=== PATIENT | male | born 1950 | race Caucasian/White ===

== ENCOUNTER 2018-05-15 20:29 | Inpatient (IN) | payer OTHER ==
[~2018-05-15] VITALS: Ht 182.9 cm; Wt 101.2 kg
[2018-05-15 20:58] LABS: BASOPHIL % 0.5 % (0-2); PLATELET COUNT 197 x10^3mcL (130-400)
[2018-05-15 20:59] LABS: RED CELL DISTRIBUTION WIDTH 16.2 % (11.5-14.5)
[2018-05-15 21:21] LABS: CALCIUM 8.8 mg/dL (8.5-10.1); CARBON DIOXIDE 29.6 mmol/L (21-32); CHLORIDE SERUM 104 mmol/L (98-107); GFR1 > 60 mL/min; GLUCOSE SERUM 303 mg/dL (74-106); POTASSIUM SERUM 4.5 mmol/L (3.5-5.1); SODIUM SERUM 139 mmol/L (136-145)
[2018-05-15 21:26] LABS: ALBUMIN 3.1 g/dL (3.4-5.0); ALKALINE PHOSPHATASE 55 U/L (46-116); ALT/SGPT 20 U/L (16-63); AST/SGOT 15 U/L (15-37); BILIRUBIN TOTAL 0.72 mg/dL (0.20-1.00); LIPASE 96 IU/L (73-393)
[2018-05-15 22:05] LABS: MAGNESIUM 1.4 mg/dL (1.8-2.4); PHOSPHOROUS 3.6 mg/dL (2.5-4.9)
[2018-05-15 22:06] LABS: CHOLESTEROL/HDL RATIO 3.3
[2018-05-15 23:12] VITALS: BP 138/66
[2018-05-16 00:24] LABS: microscopic required? NO
[2018-05-16 00:40] LABS: urine erythrocyte NEGATIVE (NEGATIVE)
[2018-05-16 01:02] LABS: BASOPHIL % 0.3 % (0-2); PLATELET COUNT 177 x10^3mcL (130-400); RED CELL DISTRIBUTION WIDTH 15.5 % (11.5-14.5)
[2018-05-16 01:06] LABS: AMPHETAMINE QUAL UR NONE DETECTED (See below)
[2018-05-16 02:25] VITALS: BP 125/68
[2018-05-16 06:07] VITALS: BP 120/67
[2018-05-16 06:36] LABS: CALCIUM 8.4 mg/dL (8.5-10.1); CHLORIDE SERUM 108 mmol/L (98-107); GFR1 > 60 mL/min; GLUCOSE SERUM 240 mg/dL (74-106); MAGNESIUM 1.6 mg/dL (1.8-2.4); PHOSPHOROUS 2.9 mg/dL (2.5-4.9); POTASSIUM SERUM 4.4 mmol/L (3.5-5.1); SODIUM SERUM 144 mmol/L (136-145)
[2018-05-16 07:00] LABS: BASOPHIL % 0.2 % (0-2); PLATELET COUNT 170 x10^3mcL (130-400)
[2018-05-16 07:03] LABS: RED CELL DISTRIBUTION WIDTH 15.9 % (11.5-14.5)
[2018-05-16 09:56] VITALS: BP 140/78
[2018-05-16 12:55] VITALS: BP 133/72
[2018-05-16 14:35] LABS: BASOPHIL % 0.8 % (0-2); PLATELET COUNT 205 x10^3mcL (130-400)
[2018-05-16 14:43] LABS: RED CELL DISTRIBUTION WIDTH 16.6 % (11.5-14.5)
[2018-05-16 18:39] VITALS: BP 159/78
[2018-05-16 20:36] VITALS: BP 151/77
[2018-05-17 05:16] VITALS: BP 137/77
[2018-05-17 06:26] LABS: BASOPHIL % 0.2 % (0-2); PLATELET COUNT 143 x10^3mcL (130-400)
[2018-05-17 06:28] LABS: RED CELL DISTRIBUTION WIDTH 16.8 % (11.5-14.5)
[2018-05-17 06:35] LABS: CALCIUM 8.4 mg/dL (8.5-10.1); CARBON DIOXIDE 32.2 mmol/L (21-32); CHLORIDE SERUM 107 mmol/L (98-107); CREATININE SERUM 0.8 mg/dL (0.7-1.3); GFR1 > 60 mL/min; GLUCOSE SERUM 211 mg/dL (74-106); POTASSIUM SERUM 3.8 mmol/L (3.5-5.1); SODIUM SERUM 144 mmol/L (136-145)
[2018-05-17 09:19] VITALS: BP 147/72
[2018-05-17 12:30] VITALS: BP 114/48
[2018-05-17 17:48] VITALS: BP 133/58
[2018-05-17 20:20] VITALS: BP 127/71
[2018-05-18 05:22] VITALS: BP 134/63
[2018-05-18 06:33] LABS: CALCIUM 8.5 mg/dL (8.5-10.1); CARBON DIOXIDE 30.8 mmol/L (21-32); CHLORIDE SERUM 107 mmol/L (98-107); CREATININE SERUM 0.9 mg/dL (0.7-1.3); GFR1 > 60 mL/min; GLUCOSE SERUM 168 mg/dL (74-106); POTASSIUM SERUM 3.6 mmol/L (3.5-5.1); SODIUM SERUM 143 mmol/L (136-145)
[2018-05-18 06:51] LABS: BASOPHIL % 0.3 % (0-2); PLATELET COUNT 133 x10^3mcL (130-400)
[2018-05-18 07:14] VITALS: BP 130/62
[2018-05-18 07:34] LABS: RED CELL DISTRIBUTION WIDTH 16.5 % (11.5-14.5)
[2018-05-18] MEDS ORDERED: GOOD SENSE OMEP20 MG PO (11:28)
[2018-05-18] MEDS ORDERED: NATURAL IRON65 MG PO (11:52)
[2018-05-18 11:57] VITALS: BP 130/62
[2018-05-22 11:35] VITALS: Ht 182.9 cm; Wt 101.2 kg
== END 2018-05-18 12:40 | disposition home or self-care (01) | DRG 377 ==
LOC: ED 20:29 → DU 21:42
PROVIDERS: Emergency Medicine; Internal Medicine Gastroenterology; ADMIT Internal Medicine
PROC: 30233N1 Transfusion of Nonautologous Red Blood Cells into Peripheral Vein, Percutaneous Approach (ICD-10-PCS; 2018-05-15)
PROC: 0DB78ZX Excision of Stomach, Pylorus, Via Natural or Artificial Opening Endoscopic, Diagnostic (ICD-10-PCS; principal; 2018-05-16 10:30)
PROC: 0W3P8ZZ Control Bleeding in Gastrointestinal Tract, Via Natural or Artificial Opening Endoscopic (ICD-10-PCS; 2018-05-16 10:30)
DX: K25.4 Chronic or unspecified gastric ulcer with hemorrhage (principal); N17.0 Acute kidney failure with tubular necrosis; E44.0 Moderate protein-calorie malnutrition; I69.351 Hemiplegia and hemiparesis following cerebral infarction affecting right dominant side; E11.65 Type 2 diabetes mellitus with hyperglycemia; E86.0 Dehydration; E83.42 Hypomagnesemia; E78.5 Hyperlipidemia, unspecified; I10 Essential (primary) hypertension; G90.9 Disorder of the autonomic nervous system, unspecified; Z68.36 Body mass index [BMI] 36.0-36.9, adult; Z79.01 Long term (current) use of anticoagulants; Z79.84 Long term (current) use of oral hypoglycemic drugs
CPT/HCPCS: 43235; 82962; 83880; 87804; C9113; J1200; J1610; J2250; J2310; J2405; J3010; J3490; J7030; J7050; P9016; Q0092; Q0163